=== PATIENT | female | born 1995 | race Caucasian/White ===

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

== ENCOUNTER 2017-02-06 17:10 | Emergency (ER) | payer OTHER ==
[2017-02-06 17:10] VITALS: BMI 28.8
[2017-02-06 17:21] VITALS: BP 149/108; PULSE 82; RESP 18; TEMP 98.2; O2SAT 98
--- NOTE | 2017-02-06 18:10 | ED PDOC ---
HPI: Skin/Bite Injury Time Seen by Provider: 02/06/17 17:21 Chief Complaint (Nursing): Upper Extremity Problem/Injury Chief Complaint (Provider): Upper Extremity Problem/Injury History Per: Patient History/Exam Limitations: no limitations Additional Complaint(s): 21 y/o female presents to the emergency department with a complaint of an abscess located under the left armpit. Reports abscess became bigger throughout the week. States she had experienced a similar episode before that would resolve spontaneously. Denies fever or chills. Past Medical History Reviewed: Historical Data, Nursing Documentation, Vital Signs Vital Signs: Last Vital Signs Temp 98.2 F 02/06/17 17:20 Pulse 82 02/06/17 17:20 Resp 18 02/06/17 17:20 BP 149/108 H 02/06/17 17:20 Pulse Ox 98 02/06/17 18:57 - Medical History PMH: No Chronic Diseases - Surgical History Surgical History: No Surg Hx - Family History Family History: States: Unknown Family Hx - Home Medications Home Medications: Ambulatory Orders Medication Instructions Recorded Amoxicillin/Potassium Clav 1 tab PO TID #30 tab 10/17/16 [Augmentin 500 mg-125 mg] Neomycin/Polymyxin/Hydrocortis 3 drop OT TID #1 bottle 10/17/16 [Cortisporin Otic Susp] Ibuprofen [Motrin Tab] 800 mg PO Q6H PRN #20 tab 10/19/16 Cephalexin [cephalexin] 500 mg PO BID #14 cap 02/06/17 Ibuprofen [Motrin] 600 mg PO Q6 #20 tab 02/06/17 Sulfamethoxazole/Trimethoprim 1 tab PO BID 5 Days tab 02/06/17 [Bactrim DS 800 mg-160 mg] - Allergies Allergies/Adverse Reactions: Allergies Allergy/AdvReac Type Severity Reaction Status Date / Time No Known Allergies Allergy Verified 10/17/16 07:42 Review of Systems ROS Statement: Except As Marked, All Systems Reviewed And Found Negative Constitutional: Negative for: Fever, Chills Musculoskeletal: Positive for: Other (Pain under the left armpit status post abscess) Physical Exam - Reviewed Nursing Documentation Reviewed: Yes Vital Signs Reviewed: Yes - Physical Exam Appears: Positive for: Non-toxic, No Acute Distress Head Exam: Positive for: ATRAUMATIC, NORMAL INSPECTION, NORMOCEPHALIC Skin: Positive for: Normal Color, Warm, Dry Extremity: Positive for: Normal ROM, Tenderness (4cm area with eryhtema with tenderness and fluctuance to the left axilla. ) Neurologic/Psych: Positive for: Alert, Oriented (x3) - ECG O2 Sat by Pulse Oximetry: 98 (RA) Pulse Ox Interpretation: Normal Medical Decision Making Medical Decision Making: Time: 17:45 Initial impression: Abscess Initial plan: -- Lidocaine 1% INJ --Information of abscess drainage within I&D procedure --Patient tolerated abscess drainage. Packaging was inserted. Time: 1841 --Keflex 500 mg PO --Motrin 600 mg PO --Bactrim DS 1 tab PO Upon provider reevaluation patient is feeling better, is medically stable, and requires no further treatment in the ED at this time. Patient will be discharged home with Rx for Cephalexin 500 mg, Motrin 600 mg, and Bactrim DS 800 -160 mg. Counseling was provided and all questions were answered regarding diagnosis and need for follow up our facility or any other facility for packaging removal. There is agreement to discharge plan. Return if symptoms persist or worsen. Clinical Impression: Abscess Scribe Attestation: Documented by Jeannie Pardo, acting as a scribe for Joan Zavala PA-C Provider Scribe Attestation: All medical record entries made by the Scribe were at my direction and personally dictated by me. I have reviewed the chart and agree that the record accurately reflects my personal performance of the history, physical exam, medical decision making, and the department course for this patient. I have also personally directed, reviewed, and agree with the discharge instructions and disposition. Disposition - Clinical Impression Clinical Impression: Abscess - Patient ED Disposition Is Patient to be Admitted: No Counseled Patient/Family Regarding: Diagnosis, Need For Followup - Disposition Disposition: Routine/Home Disposition Time: 18:42 Condition: STABLE Additional Instructions: Return to ED in 2 days for wound check and packing removal Prescriptions: Cephalexin [cephalexin] 500 mg PO BID #14 cap Ibuprofen [Motrin] 600 mg PO Q6 #20 tab Sulfamethoxazole/Trimethoprim [Bactrim DS 800 mg-160 mg] 1 tab PO BID 5 Days tab Instructions: Abscess (ED) Forms: [employer] (British) - Incision & Drainage Of Abscess Anesthesia: Lidocaine 1% Prep Used: Sterile Water Procedure: Incised W/Scalpel Blade#: (11), Drained Pus, Probed To Break Up Loculations, Packed W/Gauze
[2017-02-06] MEDS ORDERED: Lidocaine 1% Inj (20ml) ONE (18:14)
[2017-02-06] MEDS ORDERED: Tmp-Smz 800 mg-160 mg DS Tab PO STA (18:42)
== END 2017-02-06 18:58 | disposition home or self-care (01) ==
LOC: H.ER 17:10
DX: L02.412 Cutaneous abscess of left axilla (principal)

== ENCOUNTER 2017-02-08 14:29 | Emergency (ER) | payer OTHER ==
[2017-02-08 14:29] VITALS: BMI 28.8
[2017-02-08 14:33] VITALS: BP 148/90; PULSE 72; RESP 18; TEMP 96.9; O2SAT 100
[2017-02-08] MEDS ORDERED: cefTRIAXone (Rocephin) 1 gm Inj IM ONE (15:16)
[2017-02-08] MEDS ORDERED: cefTRIAXone (Rocephin) 250 mg Inj ONE (15:21)
[2017-02-08] MEDS ORDERED: Sterile Water 10 ML IV ONE (15:21)
--- NOTE | 2017-02-08 15:22 | ED PDOC ---
HPI: Wound Care - HPI Time Seen by Provider: 02/08/17 15:01 Chief Complaint (Nursing): Wound Check Chief Complaint (Provider): Wound Check History Per: Patient Exam Limitations: no limitations Current Symptoms Are (Timing): Still Present Additional Complaint(s): 21 y/o female presents to the ED for package change and wound check. Patient has incision and drainage of abcess under left axilla. Patient notes drainage and excess bleeding from the abscess but states it got smaller than before. She denies fever or any further medical complaints. Past Medical History Reviewed: Historical Data, Nursing Documentation, Vital Signs Vital Signs: Last Vital Signs Temp 96.9 F L 02/08/17 14:30 Pulse 72 02/08/17 14:30 Resp 18 02/08/17 14:30 BP 148/90 02/08/17 14:30 Pulse Ox 100 02/08/17 14:30 - Family History Family History: States: Unknown Family Hx - Social History Current smoker - smoking cessation education provided: No Alcohol: None Drugs: Denies - Home Medications Home Medications: Ambulatory Orders Medication Instructions Recorded Amoxicillin/Potassium Clav 1 tab PO TID #30 tab 10/17/16 [Augmentin 500 mg-125 mg] Neomycin/Polymyxin/Hydrocortis 3 drop OT TID #1 bottle 10/17/16 [Cortisporin Otic Susp] Ibuprofen [Motrin Tab] 800 mg PO Q6H PRN #20 tab 10/19/16 Cephalexin [cephalexin] 500 mg PO BID #14 cap 02/06/17 Ibuprofen [Motrin] 600 mg PO Q6 #20 tab 02/06/17 Sulfamethoxazole/Trimethoprim 1 tab PO BID 5 Days tab 02/06/17 [Bactrim DS 800 mg-160 mg] - Allergies Allergies/Adverse Reactions: Allergies Allergy/AdvReac Type Severity Reaction Status Date / Time No Known Allergies Allergy Verified 10/17/16 07:42 Review of Systems ROS Statement: Except As Marked, All Systems Reviewed And Found Negative (As per HPI, otherwise negative) Constitutional: Negative for: Fever, Chills Musculoskeletal: Negative for: Arm Pain Skin: Positive for: Other (Abscess noted on left axilla, draining and bleeding noted ) Physical Exam - Reviewed Nursing Documentation Reviewed: Yes Vital Signs Reviewed: Yes - Physical Exam Appears: Positive for: Non-toxic, No Acute Distress Head Exam: Positive for: ATRAUMATIC, NORMAL INSPECTION, NORMOCEPHALIC Skin: Positive for: Normal Color (Abscess noted on left axilla, incision and drainage performed, quarter inch package replaced, no erythema noted in the area , tenderness noted in the area), Warm, Dry Respiratory: Negative for: Accessory Muscle Use, Respiratory Distress Neurologic/Psych: Positive for: Alert, Oriented (x3) - ECG O2 Sat by Pulse Oximetry: 100 (RA) Pulse Ox Interpretation: Normal Medical Decision Making Medical Decision Making: Time: 15:16 Initial Plan: Rocephin 1gm IM Time: 15:30 Clinical Impression: Upon provider evaluation patient is medically stable, and requires no further treatment in the ED at this time. Patient will be discharged home. Counseling was provided and all questions were answered regarding diagnosis and need for follow up with PMD. There is agreement to discharge plan. Return if symptoms persist or worsen. Scribe Attestation: Documented by Eliecer Hazel, acting as a scribe for Lesa Gayle PA-C Provider Scribe Attestation: All medical record entries made by the Scribe were at my direction and personally dictated by me. I have reviewed the chart and agree that the record accurately reflects my personal performance of the history, physical exam, medical decision making, and the department course for this patient. I have also personally directed, reviewed, and agree with the discharge instructions and disposition. Disposition - Clinical Impression Clinical Impression: Encounter for wound re-check - Patient ED Disposition Is Patient to be Admitted: No - Disposition Disposition: Routine/Home Disposition Time: 15:30 Condition: STABLE Additional Instructions: warm compress to area Instructions: Abscess (ED) Forms: [employer] (Slovak)
== END 2017-02-08 15:35 | disposition home or self-care (01) ==
LOC: H.ER 14:29
DX: Z48.00 Encounter for change or removal of nonsurgical wound dressing (principal)
CPT/HCPCS: 96372; 99281; J0696